=== PATIENT | female | born 1985 | race Caucasian/White ===

== ENCOUNTER 2022-10-26 17:59 | Emergency (ER) | payer MEDICAID ==
[~2022-10-26] VITALS: Ht 167.6 cm; Wt 66.4 kg
[2022-10-26 18:11] VITALS: BP 156/93; PULSE 96; RESP 16; TEMP 98.4
[2022-10-26] MEDS ORDERED: BUPR1FIL3 SL ×2 (18:14→21:05)
[2022-10-27] MEDS ORDERED: BUPR1FIL3 SL (09:23)
== END 2022-10-26 21:12 | disposition home or self-care (01) ==
LOC: EMS 18:02
DX: F11.20 Opioid dependence, uncomplicated (principal); Z76.0 Encounter for issue of repeat prescription; Z88.5 Allergy status to narcotic agent; Z90.49 Acquired absence of other specified parts of digestive tract
CPT/HCPCS: 99281; Z7502

== ENCOUNTER 2024-02-02 04:09 | Emergency (ER) | payer MEDICAID, OTHER ==
[~2024-02-02] VITALS: Ht 162.6 cm; Wt 62.7 kg
[~2024-02-02 04:09] MED LIST: BUPR1FIL3 SL
[2024-02-02 04:13] VITALS: BP 121/76; PULSE 81; RESP 18; TEMP 98; O2SAT 95
[2024-02-02] MEDS: BUPRENORPHINE HCL/NALOXONE HCL 8-2 MG SUBLINGUAL TABLET SL ONE (04:39)
== END 2024-02-02 04:40 | disposition home or self-care (01) ==
LOC: EMS 04:10
DX: F11.20 Opioid dependence, uncomplicated (principal); Z76.0 Encounter for issue of repeat prescription; Z88.5 Allergy status to narcotic agent
CPT/HCPCS: 99283

== ENCOUNTER 2024-08-31 15:26 | Emergency (ER) | payer MEDICAID ==
[~2024-08-31] VITALS: Ht 157.5 cm; Wt 72.7 kg
[2024-08-31 15:33] VITALS: TEMP 97.9
[2024-08-31 17:35] VITALS: BP 145/79; PULSE 80; RESP 16; O2SAT 100
== END 2024-08-31 21:14 | disposition left against medical advice (07) ==
LOC: EMS 15:26
DX: M79.643 Pain in unspecified hand (principal); Z53.21 Procedure and treatment not carried out due to patient leaving prior to being seen by health care provider

== ENCOUNTER 2024-09-19 00:12 | Emergency (ER) | payer MEDICAID, OTHER ==
[~2024-09-19] VITALS: Ht 162.6 cm; Wt 74.5 kg
[2024-09-19 00:29] VITALS: BP 128/77; PULSE 87; RESP 18; TEMP 98.1; O2SAT 98
[2024-09-19] MEDS: BUPRENORPHINE HCL/NALOXONE HCL 8-2 MG SUBLINGUAL TABLET SL ONE (03:00)
== END 2024-09-19 03:43 | disposition home or self-care (01) ==
LOC: EMS 00:12
DX: Z51.81 Encounter for therapeutic drug level monitoring (principal); Z90.49 Acquired absence of other specified parts of digestive tract; Z88.5 Allergy status to narcotic agent; Z91.011 Allergy to milk products
CPT/HCPCS: 99283

== ENCOUNTER 2024-11-09 05:10 | Emergency (ER) | payer OTHER ==
[~2024-11-09] VITALS: Ht 162.6 cm; Wt 168.0 kg
[2024-11-09 07:34] VITALS: TEMP 97.9
[2024-11-09] MEDS: BUPRENORPHINE HCL/NALOXONE HCL 8-2 MG SUBLINGUAL TABLET SL ONE (07:44)
[2024-11-09] MEDS: SILVER SULFADIAZINE 1% 25 GM CREAM TUBE TP ONE (07:44)
[2024-11-09 08:00] VITALS: BP 142/87; PULSE 75; RESP 18; O2SAT 100
== END 2024-11-09 08:28 | disposition home or self-care (01) ==
LOC: EMS 05:10
DX: O26.892 Other specified pregnancy related conditions, second trimester (principal); T24.212A Burn of second degree of left thigh, initial encounter; F11.20 Opioid dependence, uncomplicated; Z90.49 Acquired absence of other specified parts of digestive tract; Z88.5 Allergy status to narcotic agent; Z51.81 Encounter for therapeutic drug level monitoring; Z76.0 Encounter for issue of repeat prescription; Z91.011 Allergy to milk products; Z3A.16 16 weeks gestation of pregnancy; Y92.89 Other specified places as the place of occurrence of the external cause
CPT/HCPCS: 16020; 99283